=== PATIENT | female | born 1930 | race Caucasian/White ===

== ENCOUNTER 2016-12-13 18:30 | Emergency (ER) | payer OTHER ==
[2016-12-13 17:49] LABS: INTERNATIONAL NORMAL RATI 1.7 UNITS (-); PARTIAL THROMBO TIME 29.3 SEC (22.5-37.2); PROTIME (NOT ORD) 19.8 SEC (12.0-14.5)
[2016-12-13 17:51] LABS: BASOPHILS 0.1 %; BASOPHILS ABSOLUTE 0.01 10/3/uL (0.0-0.16); EOSINOPHILS 0.1 %; EOSINOPHILS ABSOLUTE 0.01 10/3/uL (0.0-0.53); HEMOGLOBIN 16.2 g/dL (12.0-16.0); IMMATURE GRANULOCYTES 0.1 %; IMMATURE GRANULOCYTES ABSOLUTE 0.01 10/3/uL (0.0-0.11); LYMPHOCYTES 15.8 %; LYMPHOCYTES ABSOLUTE 1.35 10/3/uL (0.67-4.30); MEAN CORPUS HGB CONC 34.5 g/dL (32.0-36.0); MEAN CORPUSCULAR HEMOGLOB 30.9 pg (26.0-34.0); MEAN CORPUSCULAR VOLUME 89.7 fL (80-100); MEAN PLATELET VOLUME 11.3 fL (9.2-13.0); MONOCYTES 6.3 %; MONOCYTES ABSOLUTE 0.54 10/3/uL (0.21-1.20); NEUTROPHILS 77.6 %; NEUTROPHILS ABSOLUTE 6.62 10/3/uL (2.02-8.40); PLATELET COUNT 136 10/3/uL (150-400); RBC DISTRIBUTION WIDTH 12.5 % (12.0-16.0); RED CELL COUNT 5.24 10/6/uL (4.0-5.6); WHITE BLOOD CELLS 8.5 10/3/uL (4.5-10.5)
[2016-12-13 17:53] LABS: A/G RATIO 0.9 (0.7-1.9); ALBUMIN 3.7 G/DL (3.5-5.0); ALKALINE PHOSPHATASE 118 U/L (45-117); BUN (BLOOD UREA NITROGEN) 21 MG/DL (6-23); CALCIUM, SERUM 9.4 MG/DL (8.5-10.4); CHLORIDE, SERUM 103 MMOL/L (96-112); CO2 (CARBON DIOXIDE) 31 MMOL/L (24-34); CREATININE 1.34 MG/DL (0.55-1.02); GFR AFRICAN AMERICAN 41 ML/MIN (>=60); GFR NON AFRICAN AMERICAN 36 ML/MIN (>=60); GLOBULIN 3.9 G/DL (2.5-4.1); GLUCOSE, SERUM 136 MG/DL (60-99); POTASSIUM, SERUM 4.1 MMOL/L (3.5-5.3); SGOT(AST) 36 U/L (5-40); SGPT(ALT) 29 U/L (5-65); SODIUM, SERUM 139 MMOL/L (135-148); TOTAL BILIRUBIN 1.9 MG/DL (0-1.2); TOTAL PROTEIN 7.6 G/DL (6.0-8.5); TROPONIN I 0.04 NG/ML (<0.05)
[2016-12-13 17:55] LABS: MANUAL DIFF NO %
[2016-12-13] MEDS ORDERED: LAN125 PO ×2 (19:02→19:03)
[2016-12-13] MEDS ORDERED: ATV.5 PO (19:03)
[2016-12-13] MEDS ORDERED: LOP100 PO (19:03)
[2016-12-13] MEDS ORDERED: NAMENDA5 PO (19:04)
[2016-12-13] MEDS ORDERED: COUMADIN4 MG PO (19:04)
[2016-12-13] MEDS ORDERED: ZOCOR40 PO (19:05)
[2016-12-13] MEDS ORDERED: XALAT OPH (19:05)
[2016-12-13] MEDS ORDERED: LEVOTHYROXIN100 MCG PO (19:06)
[2016-12-13] MEDS ORDERED: PRILO PO (19:07)
[2016-12-13] MEDS ORDERED: VITAMIN D3 PO (19:08)
[2016-12-13] MEDS ORDERED: COZAAR100 MG PO (19:09)
[2016-12-13] MEDS ORDERED: B121000P IM (19:10)
== END 2016-12-13 19:51 | disposition short-term general hospital (02) ==
LOC: ER 18:30
PROVIDERS: Emergency Medicine
DX: S06.2X0A Diffuse traumatic brain injury without loss of consciousness, initial encounter (principal); S06.350A Traumatic hemorrhage of left cerebrum without loss of consciousness, initial encounter; I10 Essential (primary) hypertension; F03.90 Unspecified dementia, unspecified severity, without behavioral disturbance, psychotic disturbance, mood disturbance, and anxiety; Z88.2 Allergy status to sulfonamides; Z79.01 Long term (current) use of anticoagulants; Z79.899 Other long term (current) drug therapy; W19.XXXA Unspecified fall, initial encounter
CPT/HCPCS: 70450; 71010; 73080-RT; 80053; 84484; 85025; 85610; 85730; 93005; 99285